=== PATIENT | male | born 1960 | race Caucasian/White ===

== ENCOUNTER → 2017-06-29 | Outpatient (CLI) | payer BC ==
[~2017-06-29] MED LIST: B-COCAP2 PO; CETI10TA84 PO; CLB200 PO; DLCSR120 PO; DLM30 PO; FLEXAMIN PO; FLNIN NAE; GADAVIST IV PRN; IRBE-43 PO; LACT10CA3 PO; MIRT15TA PO; MULT-506 PO; OMEG10007 PO; PROTONIX PO; SELENIUM PO; SERT-234 PO; TAMS0.4C59 PO; TRAM-10 PO; WARF1TAB PO; ZNT/150 PO
--- NOTE | 2017-06-29 21:02 | DIAGNOSTIC IMAGING REPORT ---
MRI OF THE LUMBAR SPINE WITH AND WITHOUT CONTRAST CLINICAL HISTORY: Back pain with left-sided sciatica. COMPARISON STUDY: Lumbar spine MRI March 30, 2008. TECHNIQUE: Utilizing a 1.5 Jasmyn magnet and dedicated coil, multiplanar, multiecho imaging of the lumbar spine was performed before and after uneventful IV administration of 12 mL of Gadavist. FINDINGS: For purposes of numbering on this exam, the L5-S1 disc space is assigned to axial image 27 of 31. Alignment of the lumbar spine is anatomic. Vertebral body heights are maintained. Conus terminates at the L1-L2 level. No intracanalicular mass or fluid collection is present. Paravertebral soft tissues are unremarkable. A suspected right renal cyst is suboptimally assessed on this exam. L1-2: The central canal and neural foramen are patent. L2-3: The central canal and neural foramen are patent. L3-4: There is a small central disc protrusion. There is slight narrowing of the central canal. The neural foramen are patent. L4-5: There is disc space narrowing. Facet arthrosis is present. Central canal and neural foramen are patent. L5-S1: There is disc narrowing with disc bulge. Facet arthrosis is present. The central canal is patent. There is moderate narrowing of the right neural foramen and mild narrowing of the left neural foramen. IMPRESSION: 1. Mild multilevel degenerative disc disease and facet arthrosis of the lumbar spine. 2. Small central disc protrusion at L3-L4 with minimal central canal narrowing. 3. Moderate right neural foraminal stenosis at L5-S1. Otherwise, mild multilevel neural foraminal stenosis. Electronically signed by: Aiden Napier M.D. 06/29/2017 9:00 PM Dictated Date/Time: 06/29/2017 8:52 PM
== END | disposition home or self-care (01) ==
LOC: C.MRI 19:19
PROVIDERS: ATTEND Physician Assistant
DX: M54.30 Sciatica, unspecified side (principal); M48.061 Spinal stenosis, lumbar region without neurogenic claudication

== ENCOUNTER 2021-03-01 05:14 | Observation (INO) ==
--- NOTE | 2021-02-13 12:23 | PAT Medication Instructions ---
Medication Instructions Date of Service February 13, 2021 Home Medications Medication Instructions Recorded celecoxib 200 mg capsule 200 mg PO QAM #90 cap 10/18/20 oxycodone-acetaminophen 5 mg-325 1 tab PO Q6H PRN #28 tab 01/24/21 mg tablet oxycodone 5 mg tablet 5 mg PO Q6 PRN #40 tab 02/06/21 diltiazem HCl 240 mg 240 mg PO QPM #90 cap 02/07/21 capsule,extended release 24 hr hydrochlorothiazide 25 mg tablet 25 mg PO QAM #90 tab 02/07/21 irbesartan 300 mg tablet 300 mg PO QAM #90 tab 02/07/21 lorazepam 1 mg tablet 1 mg PO BID PRN #60 tab 02/07/21 pantoprazole 40 mg tablet,delayed 40 mg PO QAM #90 tab 02/07/21 release cetirizine 10 mg tablet 10 mg PO QAM sertraline 100 mg tablet 200 mg PO QAM cholecalciferol (vitamin D3) 25 mcg (1,000 unit) capsule 1,000 unit PO QDL multivitamin 1 tab PO QDL selenium 50 mcg tablet 50 mcg PO QDL fluocinolone acetonide oil 5 drops OT BID PRN omega 3-ynk-eqc-fish oil [Fish Oil] 1 cap PO QDL temazepam 30 mg PO HS vitamin B complex 1 tab PO QDL celecoxib 200 mg capsule 200 mg PO QAM oxycodone-acetaminophen 5 mg-325 mg tablet 1 tab PO Q6H PRN oxycodone 5 mg tablet 5 mg PO Q6 PRN buspirone 10 mg tablet 10 mg PO BID diltiazem HCl 240 mg capsule,extended release 24 hr 240 mg PO QPM hydrochlorothiazide 25 mg tablet 25 mg PO QAM irbesartan 300 mg tablet 300 mg PO QAM lorazepam 1 mg tablet 1 mg PO BID PRN pantoprazole 40 mg tablet,delayed release 40 mg PO QAM triamcinolone acetonide 1 applic TOPICAL BID PRN ASK your surgeon for instructions celecoxib 200 mg capsule 200 mg PO QAM STOP taking 2 weeks before surgery selenium 50 mcg tablet 50 mcg PO QDL omega 2-qkx-nfc-fish oil [Fish Oil] 1 cap PO QDL STOP taking 24 hours before surgery triamcinolone acetonide 1 applic TOPICAL BID PRN DO NOT take the morning of surgery cetirizine 10 mg tablet 10 mg PO QAM cholecalciferol (vitamin D3) 25 mcg (1,000 unit) capsule 1,000 unit PO QDL multivitamin 1 tab PO QDL vitamin B complex 1 tab PO QDL hydrochlorothiazide 25 mg tablet 25 mg PO QAM irbesartan 300 mg tablet 300 mg PO QAM Take morning of surgery With a small sip of water, OTHERWISE NOTHING TO EAT OR DRINK AFTER MIDNIGHT: sertraline 100 mg tablet 200 mg PO QAM fluocinolone acetonide oil 5 drops OT BID PRN (if needed) oxycodone-acetaminophen 5 mg-325 mg tablet 1 tab PO Q6H PRN (okay to take up to 4 hours prior to surgery if needed) oxycodone 5 mg tablet 5 mg PO Q6 PRN (okay to take up to 4 hours prior to surgery if needed) buspirone 10 mg tablet 10 mg PO BID lorazepam 1 mg tablet 1 mg PO BID PRN (if needed) pantoprazole 40 mg tablet,delayed release 40 mg PO QAM Take evening before surgery fluocinolone acetonide oil 5 drops OT BID PRN (if needed) temazepam 30 mg PO HS oxycodone-acetaminophen 5 mg-325 mg tablet 1 tab PO Q6H PRN (if needed) oxycodone 5 mg tablet 5 mg PO Q6 PRN (if needed) buspirone 10 mg tablet 10 mg PO BID diltiazem HCl 240 mg capsule,extended release 24 hr 240 mg PO QPM lorazepam 1 mg tablet 1 mg PO BID PRN (if needed) Other Notes If you have any questions please call us at [phone] or [phone] or [phone] or [phone]
--- NOTE | 2021-02-14 10:16 | Anesthesiology Consultation ---
Date of Service February 14, 2021 Assessment & Plan (1) Encounter for pre-operative examination: - COVID screening: Per assessment on 02/14: Travel screen negative, no known COVID-19 positive contacts or current COVID-19 related symptoms. Patient fully vaccinated. Surgeon arranging preop COVID testing. Awaiting results. - PCP office visit (02/07/21): "He is going to have a left total hip replacement. I suggested that prior to that, given his history of hypertension that he should have a stress echocardiogram. The patient agrees and that will be scheduled. Will also repeat the CT scan of his abdomen to make sure that the previous inflammatory changes have resolved complete." CT Abdomen done 02/13/21 with no acute infectious or inflammatory findings. Awaiting stress test results. History Surgery Operation Date: 03/01/21 09:20 Proposed Procedures p Left Total Hip Arthroplasty Anterior - Tommy Bright, Height/Weight Height: 5 ft 9 in Weight: 117.2 kg Allergies Allergy/AdvReac Type Severity Reaction Status Date / Time corn AdvReac Intermediate Diarrhea Verified 02/13/21 11:41 Opioids - Morphine Analogues AdvReac Intermediate Hypotension Verified 02/13/21 11:41 zolpidem [From Ambien] AdvReac Intermediate Hallucinati Verified 02/13/21 11:41 ons GRAINS AdvReac Intermediate Diarrhea Uncoded 02/13/21 11:41 Medications Home Medications Medication Instructions Recorded Confirmed Last Taken cetirizine 10 mg tablet 10 mg PO QAM #90 tab 06/21/19 02/13/21 06/20/20 06:00 sertraline 100 mg tablet 200 mg PO QAM tab 08/02/19 02/13/21 06/20/20 06:00 cholecalciferol (vitamin D3) 25 1,000 unit PO QDL cap 04/10/20 02/13/21 08/ 4/20 mcg (1,000 unit) capsule multivitamin 1 tab PO QDL 04/10/20 02/13/21 06/19/20 selenium 50 mcg tablet 50 mcg PO QDL 04/10/20 02/13/21 06/17/20 fluocinolone acetonide oil 5 drops OT BID PRN 06/07/20 02/13/21 06/19/20 omega 5-ygn-ahj-fish oil [Fish Oil] 1 cap PO QDL 06/07/20 02/13/21 06/19/20 temazepam 30 mg PO HS 06/07/20 02/13/21 06/19/20 vitamin B complex 1 tab PO QDL 06/07/20 02/13/21 06/19/20 celecoxib 200 mg capsule 200 mg PO QAM #90 cap 10/18/20 02/13/21 Unknown oxycodone-acetaminophen 5 mg-325 1 tab PO Q6H PRN #28 tab 01/24/21 02/13/21 Unknown mg tablet oxycodone 5 mg tablet 5 mg PO Q6 PRN #40 tab 02/06/21 02/13/21 Unknown buspirone 10 mg tablet 10 mg PO BID 02/07/21 02/13/21 Unknown diltiazem HCl 240 mg 240 mg PO QPM #90 cap 02/07/21 02/13/21 Unknown capsule,extended release 24 hr hydrochlorothiazide 25 mg tablet 25 mg PO QAM #90 tab 02/07/21 02/13/21 Unknown irbesartan 300 mg tablet 300 mg PO QAM #90 tab 02/07/21 02/13/21 Unknown lorazepam 1 mg tablet 1 mg PO BID PRN #60 tab 02/07/21 02/13/21 Unknown pantoprazole 40 mg tablet,delayed 40 mg PO QAM #90 tab 02/07/21 02/13/21 Unknown release triamcinolone acetonide 1 applic TOPICAL BID PRN 02/13/21 02/13/21 Unknown Past Medical History Medical History Anxiety and depression Diverticular disease GERD (gastroesophageal reflux disease) controlled Hepatic steatosis Hiatal hernia Hypertension Nephrolithiasis Obesity Osteoarthritis Psoriasis Exercise / Class Metabolic Activity II 4-5 Yardwork/Stairs/Walk up hill (one flight of stairs (no chest pain, occasional SOB)) Past Family History Family History Unknown No problems noted. Mother Diabetes Heart disease Hypertension Father Family history of colonic polyps Other No family history of adverse response to anesthesia Past Surgical History Surgical History History of colonoscopy History of esophagogastroduodenoscopy (EGD) History of hip replacement Right S/P excision of Carpenter's neuroma Left foot Past Anesthesia History No Family Hx of Anesthesia Complications and Other (Awareness with right hip replacement) History of PONV No Hx of PONV and No Hx of Motion Sickness Social History Smoking Status: Never smoker Do You Dip or Chew Tobacco: No Hx Alcohol Use: Yes alcohol intake frequency: holidays/special occasions only Hx Substance Use: No substance use type: does not use Review of Systems Patient denies chest pain, shortness of breath, dyspnea on exertion, fever, chills, cough, wheezing, palpitations. Physical Exam Vital Signs VITALS BP 144/91 P 56 TEMP 98.1 SP02 96%RA RESP 16 PHYSICAL Full cervical extension range of motion. Full TMJ range of motion. TMD 4 finger breaths Mallampati Score 3 Dentition: intact Lungs: clear throughout to auscultation Cardiac: regular rate and rhythm, no murmurs noted Spine: normal Carotid arteries: negative bruit Extremities: no edema Testing Laboratory Results 02/14/21 10:52 02/14/21 10:52 PT 10.3 Seconds (9.0-12.0) 02/14/21 10:52 INR 1.0 (0.9-1.1) 02/14/21 10:52 APTT 25.6 Seconds (21.0-31.0) 02/14/21 10:52 Blood Type A Negative 02/14/21 10:52 Antibody Screen NEGATIVE 02/14/21 10:52 Electrocardiogram Date: 02/14/21 Sinus bradycardia with first-degree AV block at 47 bpm. Otherwise normal ECG. No significant change compared to 02/07/2013 per glazier metal furniture review. Chest X-Ray Date: 02/14/21 Findings: + NAD Other Testing Abdomen CT: 02/13/21: No acute infectious or inflammatory findings are identified in the abdomen. Nonspecific haziness of the mesentery is unchanged as compared to 07/15/2020 and of indeterminant significance. Hepatomegaly and hepatic steatosis. Splenomegaly. Right-sided nephrolithiasis.
--- NOTE | 2021-02-14 11:25 | XRay Report ---
XR chest Pre-admission PA/Lat HISTORY: Preop. Joint pain. COMPARISON: Chest 02/07/2013. FINDINGS: The lungs are clear. Cardiac silhouette is normal in size. No pleural effusions. No pneumot horax. IMPRESSION: No acute process. ACT 112: Negative or not required by law. Electronically signed by: Gato Tobar M.D. 02/14/2021 11:24 AM
[2021-02-14 11:51] LABS: Basophils # (auto) 0.01 K/uL (0-0.2); Basophils % (auto) 0.2 %; Eosinophils # (auto) 0.05 K/uL (0-0.5); Eosinophils % (auto) 1.2 %; Hematocrit (blood only) 40.8 % (42-52); Hemoglobin 15.2 g/dL (14.0-18.0); Immature Granulocytes # (auto) 0.01 K/uL (0.00-0.02); Immature Granulocytes % (auto) 0.2 %; Lymphocytes # (auto) 1.08 K/uL (1.2-3.4); Lymphocytes % (auto) 25.2 %; Mean Corpuscular Hemoglobin 33.1 pg (25-34); Mean Corpuscular Hgb Conc 37.3 g/dL (32-36); Mean Corpuscular Volume 88.9 fL (80-100); Mean Platelet Volume 10.1 fL (7.4-10.4); Monocytes # (auto) 0.51 K/uL (0.11-0.59); Monocytes % (auto) 11.9 %; Neutrophils # (auto) 2.62 K/uL (1.4-6.5); Neutrophils % (auto) 61.3 %; Platelet Count 214 K/uL (130-400); RDW Coefficient of Variation 12.8 % (11.5-14.5); RDW Standard Deviation 40.4 fL (36.4-46.3); Red Blood Count 4.59 M/uL (4.7-6.1); White Blood Count 4.28 K/uL (4.8-10.8)
[2021-02-14 12:00] LABS: BUN Creatinine Ratio 16.5 (10-20); Calcium 8.9 mg/dl (8.5-10.1); Creatinine Clr Calc Pharmacy 100.8 ml/min; Est GFR (African American) 97.8 ml/min; Est GFR (Non-African American) 84.4 ml/min; Potassium 3.7 mmol/L (3.5-5.1)
[2021-02-14 12:12] LABS: Partial Thromboplastin Time 25.6 Seconds (21.0-31.0); Prothrombin Time 10.3 Seconds (9.0-12.0)
--- NOTE | 2021-02-14 18:40 | Electrocardiogram Report ---
Test Reason : Blood Pressure : / mmHG Vent. Rate : 047 BPM Atrial Rate : 047 BPM P-R Int : 216 ms QRS Dur : 100 ms QT Int : 474 ms P-R-T Axes : 045 034 039 degrees QTc Int : 419 ms Sinus bradycardia with 1st degree A-V block Otherwise normal ECG When compared with ECG of 07-FEB-2013 15:44, No significant change was found Confirmed by Sergio Candelaria ([id number]) on 02/14/2021 6:40:47 PM Referred By: Tommy Bright Confirmed By:Jay Candelaria
--- NOTE | 2021-02-28 07:15 | History & Physical Report ---
Date of Service February 28, 2021 Assessment & Plan (1) Osteoarthritis of left hip: We will proceed with a left total hip arthroplasty. Postoperatively he will be started on aspirin for DVT prophylaxis and kept overnight in the hospital for postoperative medical management. He plans to use energy physical therapy upon discharge. History of Present Illness Chief Complaint: Osteoarthritis of the left hip. Primary Care Provider: Clayton White MD Vinayak is a pleasant 60-year-old male who is been doing with chronic increasing left hip and groin pain. He has a history of a left hip replacement done by Dr. Ventura in 2016. He is done well with that. Unfortunately still with a lot of left hip pain. All his pain is located in his groin. X-rays and clinical examination have been diagnostic for advanced osteoarthritis of the left hip. I did send him for an MRI of his hip and the MRI also confirms the arthritis. After failing conservative treatment, he has elected proceed with a left total hip arthroplasty.. Allergies Allergy/AdvReac Type Severity Reaction Status Date / Time corn AdvReac Intermediate Diarrhea Verified 02/13/21 11:41 Opioids - Morphine Analogues AdvReac Intermediate Hypotension Verified 02/13/21 11:41 zolpidem [From Ambien] AdvReac Intermediate Hallucinati Verified 02/13/21 11:41 ons GRAINS AdvReac Intermediate Diarrhea Uncoded 02/13/21 11:41 Home Medications Medication Instructions Recorded Confirmed Type cetirizine 10 mg tablet 10 mg PO QAM #90 tab 06/21/19 02/13/21 History sertraline 100 mg tablet 200 mg PO QAM tab 08/02/19 02/13/21 History cholecalciferol (vitamin D3) 25 1,000 unit PO QDL cap 04/10/20 02/13/21 History mcg (1,000 unit) capsule multivitamin 1 tab PO QDL 04/10/20 02/13/21 History selenium 50 mcg tablet 50 mcg PO QDL 04/10/20 02/13/21 History fluocinolone acetonide oil 5 drops OT BID PRN 06/07/20 02/13/21 History omega 2-mju-wym-fish oil [Fish Oil] 1 cap PO QDL 06/07/20 02/13/21 History temazepam 30 mg PO HS 06/07/20 02/13/21 History vitamin B complex 1 tab PO QDL 06/07/20 02/13/21 History celecoxib 200 mg capsule 200 mg PO QAM #90 cap 10/18/20 02/13/21 Rx oxycodone-acetaminophen 5 mg-325 1 tab PO Q6H PRN #28 tab 01/24/21 02/13/21 Rx mg tablet oxycodone 5 mg tablet 5 mg PO Q6 PRN #40 tab 02/06/21 02/13/21 Rx buspirone 10 mg tablet 10 mg PO BID 02/07/21 02/13/21 History diltiazem HCl 240 mg 240 mg PO QPM #90 cap 02/07/21 02/13/21 Rx capsule,extended release 24 hr hydrochlorothiazide 25 mg tablet 25 mg PO QAM #90 tab 02/07/21 02/13/21 Rx irbesartan 300 mg tablet 300 mg PO QAM #90 tab 02/07/21 02/13/21 Rx lorazepam 1 mg tablet 1 mg PO BID PRN #60 tab 02/07/21 02/13/21 Rx pantoprazole 40 mg tablet,delayed 40 mg PO QAM #90 tab 02/07/21 02/13/21 Rx release triamcinolone acetonide 1 applic TOPICAL BID PRN 02/13/21 02/13/21 History Past Med/Surg History Medical History Anxiety and depression Diverticular disease GERD (gastroesophageal reflux disease) controlled Hepatic steatosis Hiatal hernia Hypertension Nephrolithiasis Obesity Osteoarthritis Psoriasis Surgical History History of colonoscopy History of esophagogastroduodenoscopy (EGD) History of hip replacement 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 Physical Exam On physical examination of the left hip, his leg lengths are equal. He has good range of motion of his hip but significant pain with forced internal rotation. All his pain is located in his groin.. Constitutional WD/WN, vitals as above Eyes PERRL, conjunctivae normal, anicteric sclerae ENMT external ear and nose normal, oropharynx normal Neck trachea midline, no thyromegaly Respiratory normal respiratory effort Cardiovascular RRR, no murmur, no edema Gastrointestinal (Abdomen) normal bowel sounds, soft, nontender, no hepatosplenomegaly Psychiatric A+Ox3, euthymic affect Results & Data Results & Data Laboratory Results . Diagnostic Findings X-rays of the left hip do show a cam deformity with mild to moderate osteoarthritis MRI of the right hip does show obvious loss of cartilage in the joint.. PG Care Time/CCT Total # of Minutes Spent Total Time Spent with Patient: Total time spent is greater than 50% in coordination of care (as documented) at patient's floor/unit and/or counseling patient: Coding Level of Care Code None Diagnoses Osteoarthritis of left hip M16.12
[2021-03-01] MEDS ORDERED: LR 500ML BOLUS, THEN 15ML/HR IV SCH (06:00)
[2021-03-01] MEDS ORDERED: dexAMETHasone 4 MG TAB PO SCH (06:00)
[2021-03-01] MEDS ORDERED: ceFAZolin 2000MG 2,000 MG/15 ML SYR IV SCH (06:00)
[2021-03-01] MEDS ORDERED: FAMOTIDINE 20 MG TAB PO SCH (06:00)
[2021-03-01] MEDS ORDERED: TRANEXAMIC ACID 1,000 MG **IV Pre-op IV SCH (06:00)
[2021-03-01] MEDS ORDERED: GABAPENTIN 600 MG DOSE PO SCH (06:00)
[2021-03-01] MEDS ORDERED: LR 60ML/HR IV SCH (06:00)
[2021-03-01] MEDS ORDERED: ROPIVACAINE 0.5% HCL/PF 150 MG, BUPIVACAINE 0.75% MPF 20 ML, EPINEPHrine 30MG/30ML (OR ... INSTIL SCH ×2 (06:00)
[2021-03-01] MEDS ORDERED: ACETAMINOPHEN 500 MG TAB PO SCH (06:00)
[2021-03-01] MEDS ORDERED: BUPIVACAINE 0.5 % 5 MG/1 ML PF 10ML VIAL ONE (06:24)
[2021-03-01] MEDS ORDERED: ePHEDrine sulfate 50 MG/ML AMP IV PRN (06:30)
[2021-03-01] MEDS ORDERED: fentaNYL citrate 100 MCG/2 ML VIAL IV PRN (06:30)
[2021-03-01] MEDS ORDERED: ATROPINE SULFATE 0.1 MG/ML 10ML SYR IV PRN (06:30)
[2021-03-01] MEDS ORDERED: ONDANSETRON INJ 2 MG/ML 2 ML VIAL IV PRN ×2 (06:30→09:57)
--- NOTE | 2021-03-01 06:30 | History & Physical Bridge Note ---
Date of Service March 01, 2021 History & Physical Bridge Note I have examined the patient, reviewed the History & Physical and in the interval since the performance of the History & Physical I have noted the following changes of clinical significance: no changes noted
[2021-03-01] MEDS ORDERED: MIDAZOLAM HCL 1 MG/ML 2ML VIAL ONE ×2 (06:35→06:47)
[2021-03-01] MEDS ORDERED: ORTHO JOINT ANESTHETIC ONE (06:42)
[2021-03-01] MEDS ORDERED: PROPOFOL IV EMULSION 10 MG/ML 20 ML VIAL IV ONE ×3 (06:52→08:01)
[2021-03-01] MEDS ORDERED: GLYCOPYRROLATE 0.2 MG/ML VIAL ONE (08:01)
--- NOTE | 2021-03-01 08:43 | Operative Report ---
PG Post Operative Report Pre & Post Diagnosis Operation Date: 03/01/21 07:00 Pre-Op Diagnosis: Left Hip Osteoarthritis Post-Op Diagnosis: Left Hip Osteoarthritis I identified the patient and participated in the time-out.: Yes Procedure Operation Date: 03/01/21 07:00 Actual Procedures p Left Anterior Total Hip Arthroplasty (Left) - Tommy Bright DO Surgeon Tommy Bright, Installment Agent Tommy Simon PAC Estimated Blood Loss 300 Findings Consistent with Post-Op Diagnosis Specimens Left femoral head Complications none Disposition Disposition: Recovery Room Indications Vinayak is a pleasant 60-year-old male who is been dealing with chronic increasing left hip and groin pain. X-rays, MRI, and clinical examination were diagnostic for osteoarthritis of the left hip. After failing conservative treatment, he elected proceed with a left total hip arthroplasty. Description of Procedure Implants used I used a [employer] total hip arthroplasty system with a size 4 high offset Avenir Complete stem, a 56 mm G7 cup with a 25mm screw, an E1 polyethylene liner, a 40 mm ceramic head with a zero neck. Vinayak arrived at the hospital for the above procedure. He was seen in the preoperative holding area and the operative extremity was identified and signed. He was given a spinal anesthetic, a preoperative antibiotic, and TXA. He was then taken back to the operating room and laid on the table in the supine position. He was given basic sedation. The operative leg was secured to a Puristst leg positioner. The hip was then prepped and draped in sterile fashion. A timeout was done and the patient and the operative extremity was properly identified. An anterior approach was used. Dissection was taken down through the fascia and the tensor muscle belly was retracted laterally and the rectus was retracted medially. The circumflex vessels were identified and ligated. The capsule was then incised and tagged for later repair. The femoral neck was then cut and the femoral head was removed. The acetabulum was exposed. Time was spent doing a complete circumferential labral release. Sequential reaming of the acetabulum up to a size 55 reamer was done. Final reamings were done under fluoroscopy to ensure appropriate version. A Biomet 56 mm G7 cup was then impacted into place. A single 25 mm screw was placed. The E1 polyethylene liner was then snapped into place. Surrounding soft tissues were then injected with 100 cc of an orthopedic pain control cocktail. The proximal femur was then exposed. Sequential broaching up to a size 4 broach was done. Off that broach a size 40 head with a zero neck was trialed. The hip was reduced and fluoroscopic images showed anatomic alignment of the implants in acceptable length. The broach was removed. The final size 4 high offset Avenir Complete stem was then impacted into place. A ceramic 40 mm head with a zero neck was then impacted onto the stem and the hip was reduced. Final fluoroscopic images showed anatomic alignment of the hip. The capsule was then closed with #1 Vicryl suture. A dilute betadyne lavage was then done for 3 minutes. The joint was then irrigated with normal saline solution. The fascia was closed with #1 PDS suture. Skin was closed with 2-0 Vicryl, melania, and a Silverlon dressing. He was then transferred to a hospital bed and taken to the post anesthesia care unit in stable condition. He tolerated the procedure well. Tommy Simon PA-C, was present for the entire procedure. He was critical for patient positioning, prepping, draping, retraction exposure, wound closure and application of sterile dressing. I attest to the content of the Intraoperative Record and any orders documented therein. Any exceptions are noted below.
--- NOTE | 2021-03-01 09:02 | Fluoroscopy Report ---
INTRAOPERATIVE RADIOGRAPHS CLINICAL HISTORY: Left hip arthroplasty. Fluoroscopy time: 32 seconds. FINDINGS: 2 spot fluoroscopic views of the left hip are presented. On the initial image the femoral h ead and neck are surgically absent and the acetabular cup is in place. On the second image a bipolar left hip arthroplasty is in near-anatomic alignment. There is no evidence of acute fracture on these fluoroscopic views. IMPRESSION: Intraoperative images from a left hip arthroplasty procedure as above. Electronically signed by: Hunter Laughlin M.D. 03/01/2021 9:01 AM
[2021-03-01] MEDS ORDERED: HYDROmorphone INJ 0.5 MG/0.5 ML SYR IV PRN (09:57)
[2021-03-01] MEDS ORDERED: NALOXONE HCL 0.4 MG/1 ML VIAL/CARP IV PRN (09:57)
[2021-03-01] MEDS ORDERED: oxyCODONE HCL IR 5 MG TAB (IMMEDIATE RELEASE) PO PRN (09:57)
[2021-03-01] MEDS ORDERED: MAGNESIUM HYDROXIDE SUSP 30 ML UDC PO PRN (09:57)
[2021-03-01] MEDS ORDERED: bisacodyL 10 MG SUPP PR PRN (09:57)
[2021-03-01] MEDS ORDERED: SODIUM CHLORIDE 0.9% 1000ML 1,000 ML IV SCH (09:57)
[2021-03-01] MEDS ORDERED: METOCLOPRAMIDE HCL INJ 5 MG/ML 2 ML VIAL IV PRN (09:57)
[2021-03-01] MEDS ORDERED: oxyCODONE IR HOME PACK PO PRN (09:57)
--- NOTE | 2021-03-01 10:05 | XRay Report ---
AP PELVIS, CROSSTABLE LATERAL LEFT HIP History: Left total hip arthroplasty. Degenerative arthritis. Postop. FINDINGS: The patient is status post a left total hip arthroplasty. The hardware is intact. No fractu re or dislocation. Skin melania are in place. Evidence for prior right total hip arthroplasty. IMPRESSION: Left total hip arthroplasty. No evidence for hardware complication. ACT 112: Negative or not required by law. Electronically signed by: Gato Tobar M.D. 03/01/2021 10:03 AM
[2021-03-01] MEDS ORDERED: LORazepam 1 MG TAB PO PRN (10:28)
[2021-03-01] MEDS: OMEGA-3 (PURIFIED FISH OIL) 1 GM CAP PO SCH (11:12)
[2021-03-01] MEDS: CHOLECALCIFEROL 1,000 UNITS 25 MCG TAB PO SCH (11:12)
[2021-03-01] MEDS: KETOROLAC 30 MG/ML VIAL IV SCH ×3 (11:16→21:48)
[2021-03-01] MEDS: ACETAMINOPHEN 500 MG TAB PO SCH ×2 (14:46→21:47)
[2021-03-01] MEDS: ceFAZolin 2000MG 2,000 MG/15 ML SYR IV SCH ×2 (14:46→21:48)
--- NOTE | 2021-03-01 15:17 | Anesthesiology Progress Note ---
Date of Service March 01, 2021 Anesthesia Post Procedure Vital Signs Vital Signs: Temp Pulse Pulse Resp BP Pulse Ox 03/01/21 14:57 36.7 C 65 16 136/75 96 03/01/21 12:56 36.8 C 62 18 148/84 H 97 03/01/21 11:59 36.6 C 53 L 16 129/84 95 03/01/21 11:03 36.5 C 46 L 16 147/79 H 93 03/01/21 10:28 36.3 C L 52 L 16 124/75 92 03/01/21 09:57 36.4 C L 56 L 16 122/79 96 03/01/21 09:40 50 L 16 110/58 L 94 03/01/21 09:25 60 16 121/74 94 03/01/21 09:15 36.5 C 58 L 16 125/72 93 03/01/21 09:05 36.6 C 62 12 113/72 93 03/01/21 05:30 36.7 C 47 L 20 144/90 H 96 Transfer of Care Handoff Completed per policy Notes Mental Status: alert / awake / arousable and participated in evaluation Patient Amnestic to Procedure: Yes Nausea / Vomiting: adequately controlled Pain: adequately controlled Airway Patency, RR, SpO2: stable & adequate BP & HR: stable & adequate Hydration State: stable & adequate Neuraxial Anesthesia: was administered and sensory block is resolving Anesthetic Complications: no major complications apparent and Pt Satisfied with anesthetic care
[2021-03-01] MEDS ORDERED: SENNA 8.6 MG TAB PO SCH (21:00)
[2021-03-01] MEDS ORDERED: TEMAZEPAM 15 MG CAPSULE PO SCH (21:00)
[2021-03-01] MEDS ORDERED: dilTIAZem HCL 240 MG CAPCR PO SCH (21:00)
[2021-03-01] MEDS: DOCUSATE SODIUM 100 MG CAP PO SCH (21:47)
[2021-03-01] MEDS: busPIRone 5 MG TAB PO SCH (21:47)
[2021-03-01] MEDS: ASPIRIN 81 MG ECTAB PO SCH (21:47)
[2021-03-02] MEDS: KETOROLAC 30 MG/ML VIAL IV SCH ×2 (05:01→10:49)
[2021-03-02] MEDS: ACETAMINOPHEN 500 MG TAB PO SCH (05:01)
[2021-03-02] MEDS: ASPIRIN 81 MG ECTAB PO SCH (07:26)
[2021-03-02] MEDS: busPIRone 5 MG TAB PO SCH (07:26)
[2021-03-02] MEDS: DOCUSATE SODIUM 100 MG CAP PO SCH (07:28)
[2021-03-02] MEDS ORDERED: dexAMETHasone 4 MG TAB PO SCH (08:00)
--- NOTE | 2021-03-02 08:14 | Orthopedic Progress Note ---
Date of Service March 02, 2021 Assessment & Plan (1) Status post left hip replacement: Overall he is doing very well. Is not having much pain in the left hip. He will be seen by physical therapy today for ambulation and range of motion exercises. He is on aspirin for DVT prophylaxis. He can be discharged home later today. He will follow-up with orthopedics in 2 weeks. Subjective Vinayak was seen and examined at bedside this morning. Overall is doing very well. Is not having any pain in the left hip. He has been up and ambulating to the bathroom. He has no complaints.. Review of Systems All systems reviewed & are unremarkable except as noted in HPI & below. Physical Exam On physical examination of the left hip, the dressing is clean and dry. His leg lengths are equal. He has active dorsiflexion and plantarflexion of his left ankle. Sensation is intact throughout.. Results & Data Results & Data Laboratory Results . Diagnostic Findings Postoperative x-rays of the left hip show the prosthesis to be in anatomic alignment without any evidence of fracture, dislocation, or loosening. PG Care Time/CCT Total # of Minutes Spent Total Time Spent with Patient: Total time spent is greater than 50% in coordination of care (as documented) at patient's floor/unit and/or counseling patient: Coding Level of Care Code 08183 Post Operative Follow-Up Diagnoses Status post left hip replacement Z96.642
--- NOTE | 2021-03-02 08:15 | Discharge Summary ---
Date of Service March 02, 2021 Admission HPI (Per Admitting) Vinayak is a pleasant 60-year-old male who is been doing with chronic increasing left hip and groin pain. He has a history of a left hip replacement done by Dr. Ventura in 2016. He is done well with that. Unfortunately still with a lot of left hip pain. All his pain is located in his groin. X-rays and clinical examination have been diagnostic for advanced osteoarthritis of the left hip. I did send him for an MRI of his hip and the MRI also confirms the arthritis. After failing conservative treatment, he has elected proceed with a left total hip arthroplasty.. Admission Exam (Per Admitting) On physical examination of the left hip, his leg lengths are equal. He has good range of motion of his hip but significant pain with forced internal rotation. All his pain is located in his groin.. Principal Diagnosis Same as "Discharge Diagnosis" noted below under Discharge Instructions. Discharge Exam On physical examination of the left hip, the dressing is clean and dry. His leg lengths are equal. He has active dorsiflexion and plantarflexion of his left ankle. Sensation is intact throughout.. Discharge Data Procedures Performed Operation Date: 03/01/21 07:00 Actual Procedures p Left Anterior Total Hip Arthroplasty (Left) - Tommy Bright DO Ordered Studies 03/01/21 07:00 FL hip LT 1V Routine Hospital Course (1) Status post left hip replacement: On March 01, 2021 Vinaayk arrived at [facility] and underwent a left anterior hip replacement without complications. He had a spinal anesthetic. Postoperatively he was started on aspirin for DVT prophylaxis and transferred to the general orthopedic floors. His hospital course was uneventful. On postop day #1 his vital signs are stable and his pain was well controlled. He was able to participate well with physical therapy doing ambulation and range of motion exercises. He was then discharged home. He will follow-up with orthopedics in 2 weeks. PG Care Time/CCT Total # of Minutes Spent Total Time Spent with Patient: Total time spent is greater than 50% in coordination of care (as documented) at patient's floor/unit and/or counseling patient: Discharge Plan Discharge Items Patient Disposition: Home - Home Health Services Reason For Visit: Left Knee Osteoarthritis Discharge Diagnosis: Left hip replacement Activity: As commented below Non-emergency contact: Surgeon Call non-emergency contact if: your wound has increased redness and your wound has increased drainage Follow-up/Referrals: Clayton White MD [Primary Care Provider] - Diet: Regular Addtl Attending Provider Instructions: Activity and Therapy Recommendations: * If you are using [facility] then therapy will be provided at your home until they feel you have accomplished all of your goals. * If you are using [facility] then Physical Therapy will be provided until they feel you are ready to start Outpatient Physical Therapy. * If you are not using home therapy then Outpatient Physical Therapy should start about 3-5 days from your day of surgery. Therapy will last about 6-10 weeks * You were shown a series of exercises in the hospital. Do these exercises three times each day including the exercises you were shown in physical therapy. * Get up and walk several times each day.~ For the first four weeks, try not to stand or walk for more than one hour at a time. If you do stand or walk for more than one hour, you will not hurt anything, but your leg will likely swell.~~ * As you feel comfortable, you may change from the walker or crutches to a cane and~then to independent walking. Medications: * Narcotic You will likely be sent home from the hospital with a prescription for the narcotic pain medication that worked best throughout your stay. * Aspirin Most patients will be required to take Aspirin 81mg twice a day for 6 weeks after surgery. This is obtained [id number] and a prescription is not necessary. * Other medications may be prescribed for specific circumstances. If you have any questions, please call the office at . * Resume previous home medications unless otherwise instructed TEDs/Elastic Stockings: The white elastic stockings help limit swelling and prevent blood clots from forming in your legs. The more you wear them, the more they work. Wear them for six weeks. Dressing Care: Leave the Silverlon dressing in place for 7 days. After 7 days you may remove the dressing. If the incision is not draining then you may leave the melania open to air. If there is a little bit of drainage or if the melania are getting stuck on your clothing then cover the incision with a dry dressing. The melania will be removed at your 2 week follow-up appointment. Showering: You may shower with the Silverlon dressing in place. Do not let the shower spray hit the dressing directly. Pat the Silverlon dressing dry. If the dressing becomes wet underneath, then simply remove the dressing. Keep the incision dry until you are 7 days out from the day of surgery. After 7 days you may remove the Silverlon dressing and shower with the melania exposed. Let soapy water run over the melania and pat them dry. Do not scrub or soak the incision. Things To Watch For: * Drainage from the incision site that occurs more than one week after your surgery. * Increased redness at the incision site. * Fever above 102 degrees Fahrenheit. * Unusual chest pain or shortness of breath. * Call [facility] at with any of the above problems Follow-Up Visit: Follow-up with Dr. Bright's PA (Tommy Simon) 2-3 weeks after your day of surgery. He will remove your melania and answer any questions. If you have any additional questions or concerns, Dr Bright is usually in the office at the same time and will be available An appointment was probably scheduled when you signed-up for surgery in the office. If you have any questions call Office Instructions: More detailed instructions as well as Frequently Asked Questions were provided in a folder by our office when you signed-up for surgery. Please review these instructions when you get home. If you have any further questions or concerns, please feel free to call the office at [phone] Pending Studies at Discharge: No Stand-Alone Forms: [facility] [place], Smoking Cessation Medications and DC Order Prescriptions: New aspirin 81 mg Tablet,Delayed Release (Dr/Ec) 81 mg PO BID 42 Days Qty: 84 RF: 0 Continued sertraline 100 mg tablet 200 mg PO QAM RF: 0 cholecalciferol (vitamin D3) 25 mcg (1,000 unit) capsule 1,000 unit PO QDL RF: 0 selenium 50 mcg tablet 50 mcg PO QDL RF: 0 multivitamin [Daily Multi-Vitamin] Tablet 1 tab PO QDL RF: 0 celecoxib 200 mg capsule 200 mg PO QAM Qty: 90 RF: 3 buspirone 10 mg tablet 10 mg PO BID RF: 0 diltiazem HCl 240 mg capsule,extended release 24hr 240 mg PO QPM Qty: 90 RF: 3 hydrochlorothiazide 25 mg tablet 25 mg PO QAM Qty: 90 RF: 3 lorazepam [Ativan] 1 mg tablet 1 mg PO BID PRN (Reason: Anxiety) Qty: 60 RF: 1 pantoprazole 40 mg tablet,delayed release (DR/EC) 40 mg PO QAM Qty: 90 RF: 3 irbesartan 300 mg tablet 300 mg PO QAM Qty: 90 RF: 3 cetirizine 10 mg tablet 10 mg PO QAM Qty: 90 RF: 0 temazepam 30 mg Capsule 30 mg PO HS RF: 0 omega 8-ygl-ate-fish oil [Fish Oil] 300-1,000 mg Capsule 1 cap PO QDL RF: 0 fluocinolone acetonide oil 0.01 % drops 5 drops OT BID PRN (Reason: IRRITATION) RF: 0 vitamin B complex Tablet 1 tab PO QDL RF: 0 oxycodone 5 mg tablet 5 mg PO Q6 PRN (Reason: pain) Qty: 40 RF: 0 Discontinued oxycodone-acetaminophen [Percocet] 5-325 mg tablet 1 tab PO Q6H PRN (Reason: pain) Qty: 28 RF: 0 Discharge Orders: Discharge Order (Routine); Ordered 03/02/21 Ordered By: Tommy Bright Admission Data Admit Date/Time: 03/01/21 09:07 Attending Provider: Tommy Bright Admit Provider: Tommy Bright Primary Care Provider: Clayton White
[2021-03-02] MEDS ORDERED: MULTIVITAMIN TAB PO SCH (09:00)
[2021-03-02] MEDS ORDERED: CETIRIZINE HCL 10 MG TABLET PO SCH (09:00)
[2021-03-02] MEDS ORDERED: IRBESARTAN 150 MG TAB PO SCH (09:00)
[2021-03-02] MEDS ORDERED: hydroCHLOROthiazide 25 MG TAB PO SCH (09:00)
[2021-03-02] MEDS ORDERED: SERTRALINE HCL 100 MG TABLET PO SCH (09:00)
[2021-03-02] MEDS: OMEGA-3 (PURIFIED FISH OIL) 1 GM CAP PO SCH (10:49)
[2021-03-02] MEDS: CHOLECALCIFEROL 1,000 UNITS 25 MCG TAB PO SCH (10:49)
== END 2021-03-02 11:30 | disposition home or self-care (01) ==
LOC: 3E 05:14 → ASU 05:14